=== PATIENT | male | born 1960 | race African-American/Black ===

== ENCOUNTER 2017-08-09 04:49 | Emergency (ER) | payer MEDICAID ==
[~2017-08-09] VITALS: Ht 170.2 cm; Wt 68.0 kg
[2017-08-09 05:21] LABS: BASOPHILS % 0.2 % (0.0-2.0); HEMATOCRIT. 26.2 % (42.0-52.0); HEMOGLOBIN. 7.7 g/dL (14.0-18.0); LYMPHOCYTES % 3.1 % (20.0-50.0); MEAN CORPUSCULAR VOLUME 81.7 fL (80.0-94.0); MONOCYTES % 3.6 % (2.0-8.0); NEUTROPHILS % 93.1 % (40.0-76.0); PLATELET 246 x1000/uL (130-400); RED CELL DISTRIBUTION WIDTH 17.8 % (11.6-14.6)
[2017-08-09 05:28] LABS: CHLORIDE 109 mEq/L (98-107)
[2017-08-09 05:33] LABS: PROTHROMBIN TIME 10.9 sec (9.4-11.6); TROPONIN I 0.09 ng/mL (0.00-0.04)
[2017-08-09] MEDS ORDERED: SODIUM CHLORIDE 0.9% 1000ML BAG (SEPSIS BOLUS) IV ONE (06:30)
[2017-08-09] MEDS ORDERED: LORAZEPAM 2MG/ML CPJ IV ONE (06:30)
[2017-08-09 07:03] VITALS: BP 169/113
[2017-08-09 07:09] LABS: ETHANOL BLOOD < 10 mg/dL
[2017-08-09] MEDS ORDERED: PIPERACILLIN/TAZ 3.375G PREMIX 50 ML IV NR (07:45)
[2017-08-09] MEDS ORDERED: INSULIN REGULAR (HUMULIN R) 300UNITS/3ML ONE (09:58)
[2017-08-09] MEDS ORDERED: EPINEPHRINE 0.1MG/ML (1:10,000) 10ML SYR ONE ×2 (10:03→16:03)
[2017-08-09 10:27] LABS: CLARITY URINE CLEAR (CLEAR); COLOR URINE YELLOW (YELLOW); KETONES URINE NEGATIVE (NEGATIVE); LEUKOCYTE ESTERASE URINE 2+ (NEGATIVE); NITRITE URINE NEGATIVE (NEGATIVE); OCCULT BLOOD URINE TRACE (NEGATIVE); PH URINE 5.5 (4.5-8.0); PROTEIN URINE 2+ (NEGATIVE); SPECIFIC GRAVITY URINE 1.012 (1.005-1.030); UROBILINOGEN URINE 0.2 E.U./dL (0.2-1.0)
[2017-08-09 10:48] LABS: *AMPHETAMINES SCREEN URINE NEGATIVE (NEGATIVE); *BARBITURATES SCREEN URINE NEGATIVE (NEGATIVE); CANNABINOID URINE SCREEN NEGATIVE (NEGATIVE); METHADONE URINE SCREEN NEGATIVE (NEGATIVE); OPIATES URINE SCREEN NEGATIVE (NEGATIVE); PHENCYCLIDINE URINE SCREEN NEGATIVE (NEGATIVE)
[2017-08-09 10:49] LABS: *BENZODIAZEPINES SCREEN URINE NEGATIVE (NEGATIVE); *COCAINE SCREEN URINE PRESUMTIVE POSITIVE (NEGATIVE)
[2017-08-09] MEDS ORDERED: CALCIUM CHLORIDE 1GM/10ML SYR IV ONE (16:03)
[2017-08-09] MEDS ORDERED: DEXTROSE 50% WATER 50ML SYRINGE IV ONE (16:03)
[2017-08-09] MEDS ORDERED: ATROPINE SULFATE 1MG/10ML SYR ONE (16:03)
[2017-08-09] MEDS ORDERED: SODIUM BICARBONATE 7.5% 0.9 MEQ/ML 50ML SYR IV ONE (16:03)
== END 2017-08-09 10:11 | disposition expired ==
LOC: ER 05:07 → EDBEDREQ 06:38 → EDBEDREQTM 06:38 → EDBEDREQ 07:41 → ER 10:11 → CANBEDREQ 15:20
DX: I46.9 Cardiac arrest, cause unspecified (principal); K85.90 Acute pancreatitis without necrosis or infection, unspecified; D64.9 Anemia, unspecified; N39.0 Urinary tract infection, site not specified; N17.9 Acute kidney failure, unspecified; F14.10 Cocaine abuse, uncomplicated; I10 Essential (primary) hypertension; F32.9 Major depressive disorder, single episode, unspecified; F17.200 Nicotine dependence, unspecified, uncomplicated
CPT/HCPCS: 31500; 36415; 71045; 78582; 80053; 80305; 81003; 82962; 83605; 83690; 83880; 84484; 85025; 85379; 85610; 86850; 86900; 86901; 87040; 87077; 87086; 92950; 93005; 96361; 96374; 99291; A9540; A9558; G0482; J0171; J0461; J1815; J2060; J2543; J3490; J7030; Z7610